=== PATIENT | female | born 1940 | race Caucasian/White ===

== ENCOUNTER → 2016-11-07 | Outpatient (REF) | payer MEDICARE | LOC: M LAB REF 13:21 | PROVIDERS: ATTEND Internal Medicine Medical Oncology | DX: C79.81 Secondary malignant neoplasm of breast (principal) ==

== ENCOUNTER → 2016-11-21 | Outpatient (REF) | payer MEDICARE | LOC: M LAB REF 17:07 | PROVIDERS: ATTEND Internal Medicine Medical Oncology | DX: C50.919 Malignant neoplasm of unspecified site of unspecified female breast (principal) ==

== ENCOUNTER → 2016-11-28 | Outpatient (REF) | payer MEDICARE | LOC: M LAB REF 16:42 | PROVIDERS: ATTEND Internal Medicine Medical Oncology | DX: C50.919 Malignant neoplasm of unspecified site of unspecified female breast (principal) ==

== ENCOUNTER → 2016-12-19 | Outpatient (REF) | payer MEDICARE | LOC: M LAB REF 12:55 | PROVIDERS: ATTEND Internal Medicine Medical Oncology | DX: C50.919 Malignant neoplasm of unspecified site of unspecified female breast (principal) ==

== ENCOUNTER → 2017-01-09 | Outpatient (REF) | payer MEDICARE | LOC: M LAB REF 13:47 | PROVIDERS: ATTEND Internal Medicine Medical Oncology | DX: C50.919 Malignant neoplasm of unspecified site of unspecified female breast (principal) ==

== ENCOUNTER → 2017-01-30 | Outpatient (REF) | payer MEDICARE | LOC: M LAB REF 13:00 | PROVIDERS: ATTEND Internal Medicine Medical Oncology | DX: C50.919 Malignant neoplasm of unspecified site of unspecified female breast (principal) ==

== ENCOUNTER → 2017-02-20 | Outpatient (REF) | payer MEDICARE | LOC: M LAB REF 13:58 | PROVIDERS: ATTEND Internal Medicine Medical Oncology | DX: C50.919 Malignant neoplasm of unspecified site of unspecified female breast (principal) ==

== ENCOUNTER → 2017-03-13 | Outpatient (CLI) | payer MEDICARE ==
--- NOTE | 2017-03-13 10:52 | REP ---
Clinical: Right arm pain and swelling . Technique: Liao scale and color Doppler evaluation using linear high frequency transducer. Findings: Ultrasound examination of the right upper extremity including jugular, subclavian, axillary, brachial, basilic, and cephalic veins demonstrating normal flow and wave patterns in response to respiration and augmentation. There is no evidence for deep venous thrombosis. Impression: No evidence for deep venous thrombosis. Signed by Aquilino Franklin MD 03/13/2017 10:44 A
== END ==
LOC: M RAD 09:56
PROVIDERS: ATTEND Nurse Practitioner Family
DX: M79.601 Pain in right arm (principal); M79.89 Other specified soft tissue disorders

== ENCOUNTER → 2017-04-03 | Outpatient (REF) | payer MEDICARE | LOC: M LAB REF 14:37 | PROVIDERS: ATTEND Internal Medicine Medical Oncology | DX: C50.919 Malignant neoplasm of unspecified site of unspecified female breast (principal) ==

== ENCOUNTER → 2017-05-15 | Outpatient (REF) | payer MEDICARE | LOC: M LAB REF 15:35 | PROVIDERS: ATTEND Internal Medicine Medical Oncology | DX: C50.919 Malignant neoplasm of unspecified site of unspecified female breast (principal) ==

== ENCOUNTER → 2017-06-27 | Outpatient (REF) | payer MEDICARE | LOC: M LAB REF 12:55 | DX: C50.919 Malignant neoplasm of unspecified site of unspecified female breast (principal) | CPT/HCPCS: 86300 ==

== ENCOUNTER → 2017-08-07 | Outpatient (REF) | payer MEDICARE ==
[2017-08-07 20:46] LABS: CA15-3 ANTIGEN 7.8 U/ML (<32.4)
[2017-08-09 08:06] LABS: CA 27.29 18.5 U/mL (0.0-38.6)
== END ==
LOC: M LAB REF 18:27
DX: C50.919 Malignant neoplasm of unspecified site of unspecified female breast (principal)
CPT/HCPCS: 86300

== ENCOUNTER → 2017-09-25 | Outpatient (REF) | payer MEDICARE ==
[2017-09-27 08:06] LABS: CA 27.29 14.5 U/mL (0.0-38.6)
== END ==
LOC: M LAB REF 17:33
DX: C50.919 Malignant neoplasm of unspecified site of unspecified female breast (principal)
CPT/HCPCS: 86300

== ENCOUNTER → 2017-11-06 | Outpatient (REF) | payer MEDICARE ==
[2017-11-09 00:08] LABS: CA 27.29 15.7 U/mL (0.0-38.6)
== END ==
LOC: M LAB REF 17:08
DX: C50.919 Malignant neoplasm of unspecified site of unspecified female breast (principal)
CPT/HCPCS: 86300

== ENCOUNTER → 2018-01-29 | Outpatient (REF) | payer MEDICARE ==
[2018-02-01 00:11] LABS: CA 27.29 10.6 U/mL (0.0-38.6)
== END ==
LOC: M LAB REF 17:53
DX: C79.51 Secondary malignant neoplasm of bone (principal); Z85.3 Personal history of malignant neoplasm of breast
CPT/HCPCS: 86300

== ENCOUNTER → 2018-03-12 | Outpatient (REF) | payer MEDICARE ==
[2018-03-15 00:06] LABS: CA 27.29 14.6 U/mL (0.0-38.6)
== END ==
LOC: M LAB REF 17:04
DX: C79.51 Secondary malignant neoplasm of bone (principal); Z85.3 Personal history of malignant neoplasm of breast
CPT/HCPCS: 86300

== ENCOUNTER → 2018-06-11 | Outpatient (CLI) | payer MEDICARE | LOC: M PLARAD 07:30 | DX: C50.911 Malignant neoplasm of unspecified site of right female breast (principal); C79.51 Secondary malignant neoplasm of bone; C79.81 Secondary malignant neoplasm of breast | CPT/HCPCS: 78815 ==

== ENCOUNTER → 2018-06-13 | Outpatient (CLI) | payer MEDICARE ==
[~2018-06-13] MED LIST: PROHANCE 279.3MG/ML 5ML VIAL (A9576) As Ordered
== END ==
LOC: M RAD 09:44
DX: C50.911 Malignant neoplasm of unspecified site of right female breast (principal); C79.51 Secondary malignant neoplasm of bone; C79.81 Secondary malignant neoplasm of breast; I73.9 Peripheral vascular disease, unspecified
CPT/HCPCS: A9576

== ENCOUNTER → 2021-09-19 | Outpatient (CLI) | payer MEDICARE ==
[~2021-09-19] MED LIST changes: +ASPI81CH33 PO; +BIOT2500 PO; +CART120C PO; +CLON0.2T PO; +COVI2.5V IM; +D-20TAB PO; +DILT120C89 PO; +FEMA2.5T4 PO; +HERC150I IV; +HERC440I2 IV; +HYDR12.55 PO; +LETR2.5T2 PO; +METF500T13 PO; +NASO50SP3 NARES; +NEUR300C PO; +PREG50CA2 PO; -PROHANCE 279.3MG/ML 5ML VIAL (A9576) As Ordered; +PROP40TA62 PO; +PROP80TA PO; +ROLLMIS8 XX; +TRAD5TAB PO; +TRAM50TA2 PO; +TYLETAB14 PO; +VITA100093 PO; +VITA2000 PO; +XGEVINJ SC; +XYZA5TAB4 PO
== END ==
LOC: M PLARAD 14:10
PROVIDERS: ATTEND Internal Medicine Medical Oncology
DX: R93.89 Abnormal findings on diagnostic imaging of other specified body structures (principal); M89.9 Disorder of bone, unspecified; C50.811 Malignant neoplasm of overlapping sites of right female breast
CPT/HCPCS: 78815; A9552

== ENCOUNTER → 2022-03-13 | Outpatient (CLI) | payer MEDICARE ==
[~2022-03-13] MED LIST changes: +XALA0.007
== END ==
LOC: M PLARAD 12:21
PROVIDERS: ATTEND Internal Medicine Medical Oncology
DX: C79.51 Secondary malignant neoplasm of bone (principal); Z85.3 Personal history of malignant neoplasm of breast
CPT/HCPCS: 78815; A9552

== ENCOUNTER → 2022-09-13 | Outpatient (CLI) | payer MEDICARE | LOC: M PLALAB 14:53 | PROVIDERS: ATTEND Psychiatry & Neurology Neurology | DX: G70.00 Myasthenia gravis without (acute) exacerbation (principal) ==